=== PATIENT | male | born 1975 | race Hispanic/Latino ===

== ENCOUNTER 2019-01-28 05:10 | Emergency (ER) | payer OTHER ==
[2019-01-28] MEDS ORDERED: ACETAMINOPHEN EXTRA STRENGTH 500 MG TABLET ONE (05:30)
[2019-01-28] MEDS ORDERED: IBUPROFEN 600 MG TABLET ONE (05:30)
== END 2019-01-28 06:40 ==
LOC: EDH 05:10
DX: J10.1 Influenza due to other identified influenza virus with other respiratory manifestations (principal)
CPT/HCPCS: 87804